=== PATIENT | male | born 1950 | race Caucasian/White ===

== ENCOUNTER → 2016-03-01 | Outpatient (REF) | payer MEDICAID, OTHER, SELFPAY ==
[2016-03-01 11:12] LABS: MEAN CORPUSCULAR HEMOGLOBIN 32.5 pg (27.0-33.0); MEAN CORPUSCULAR HGB CONC 34.8 g/dl (32.0-36.5); MEAN CORPUSCULAR VOLUME 93.5 fl (80.0-96.0); RED CELL DISTRIBUTION WIDTH 13.1 % (11.5-14.5); WHITE BLOOD COUNT 7.3 K/mm3 (4.0-10.0)
[2016-03-01 11:15] LABS: ALBUMIN/GLOBULIN RATIO 1.43 (1.00-1.93); ALKALINE PHOSPHATASE 95 U/L (45-117); ALT/SGPT 23 U/L (12-78); ANION GAP 7 MEQ/L (8-16); AST/SGOT 18 U/L (15-37); BILIRUBIN,TOTAL 0.7 MG/DL (0.2-1.0); BLOOD UREA NITROGEN 13 MG/DL (7-18); CALCIUM LEVEL 8.5 MG/DL (8.8-10.2); CARBON DIOXIDE LEVEL 28 MEQ/L (21-32); CHLORIDE LEVEL 108 MEQ/L (98-107); CREATININE FOR GFR 1.03 MG/DL (0.70-1.30); GLOMERULAR FILTRATION RATE > 60.0 (>49); GLUCOSE, FASTING 76 MG/DL (80-110); POTASSIUM SERUM 4.2 MEQ/L (3.5-5.1); SODIUM LEVEL 143 MEQ/L (136-145); TOTAL PROTEIN 6.8 GM/DL (6.4-8.2)
== END ==
LOC: M SFHCLERA 08:40
PROVIDERS: ATTEND Family Medicine
DX: K92.1 Melena (principal)

== ENCOUNTER → 2016-03-03 | Outpatient (REF) | payer BC, MEDICAID, OTHER, SELFPAY | LOC: M SFHCLERA 13:32 | PROVIDERS: ATTEND Family Medicine | DX: K92.1 Melena (principal) ==

== ENCOUNTER → 2016-04-24 | Outpatient (CLI) | payer BC, MEDICAID ==
--- NOTE | 2016-04-24 14:39 | REP ---
Chest two views HISTORY: Shortness of breath Comparison: 05/24/2009 The lungs are clear. The heart is normal in size. The pulmonary vasculature is normal in appearance. The bony structure is intact. A pectus deformity is present. IMPRESSION: No acute disease. Signed by Jacobo Merida MD 04/24/2016 02:30 P
== END ==
LOC: M LRY 13:35
PROVIDERS: ATTEND Family Medicine
DX: R06.02 Shortness of breath (principal)

== ENCOUNTER → 2016-05-22 | Outpatient (CLI) | payer BC, MEDICAID, OTHER ==
--- NOTE | 2016-05-22 16:36 | REP ---
Clinical: Pain. Technique: Internal rotation, external rotation and Y view. Findings: Cortical irregularity and spurring at the acromioclavicular joint suggests moderate AC joint degenerative change. The glenohumeral joint appears intact and normal. No periarticular calcifications. No acute fracture or dislocation. 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 Signed by Jay Claros MD 05/22/2016 04:27 P
== END ==
LOC: M LRY 15:29
PROVIDERS: ATTEND Family Medicine
DX: M25.512 Pain in left shoulder (principal); G89.29 Other chronic pain; R20.2 Paresthesia of skin

== ENCOUNTER → 2016-09-26 | Outpatient (REF) | payer OTHER, MEDICAID | LOC: M SFHCLERA 07:35 | PROVIDERS: ATTEND Family Medicine | DX: R36.1 Hematospermia (principal) ==

== ENCOUNTER → 2016-10-09 | Outpatient (CLI) | payer MEDICAID, MEDICARE, OTHER ==
[2016-10-09 20:38] LABS: ANION GAP 7 MEQ/L (8-16); BLOOD UREA NITROGEN 16 MG/DL (7-18); CALCIUM LEVEL 9.1 MG/DL (8.8-10.2); CARBON DIOXIDE LEVEL 31 MEQ/L (21-32); CHLORIDE LEVEL 106 MEQ/L (98-107); CREATININE FOR GFR 1.21 MG/DL (0.70-1.30); GLOMERULAR FILTRATION RATE > 60.0 (>49); GLUCOSE, FASTING 79 MG/DL (80-110); POTASSIUM SERUM 4.7 MEQ/L (3.5-5.1); SODIUM LEVEL 144 MEQ/L (136-145)
== END ==
LOC: M SMT 15:07
PROVIDERS: ATTEND Nurse Practitioner Women's Health
DX: Z12.5 Encounter for screening for malignant neoplasm of prostate (principal)
CPT/HCPCS: 36415; 80048; G0103

== ENCOUNTER → 2016-10-09 | Outpatient (REF) | payer MEDICARE, OTHER ==
[2016-10-09 19:15] LABS: MICROSCOPIC INDICATED? MAN YES (NO)
[2016-10-09 20:54] LABS: BACTERIA, URINE NONE SEEN; HYALINE CAST, URINE NONE SEEN /lpf (0-1); MICROSCOPIC EXAM PERFORMED; SQUAMOUS EPITHELIAL CELL URINE NONE SEEN /hpf (SMALL AMT); WBC, URINE NONE SEEN /hpf (0-3)
== END ==
LOC: M SMT 17:21
PROVIDERS: ATTEND Nurse Practitioner Women's Health
DX: R31.29 Other microscopic hematuria (principal); R36.1 Hematospermia; Z12.5 Encounter for screening for malignant neoplasm of prostate
CPT/HCPCS: 36415; 80048; 81000; 87086; 88108; G0103; G0463

== ENCOUNTER → 2016-10-20 | Outpatient (CLI) | payer MEDICARE, OTHER ==
[~2016-10-20] MED LIST: ISOVUE-370 76% 100ML VIAL (Q9967) As Ordered ONE
--- NOTE | 2016-10-20 10:54 | REP ---
CT urogram without and with IV contrast: Without oral contrast. History: Hematospermia. Comparison KUB February 22, 2015. CT contrast dose: 100 mL of intravenous Isovue 370. CT findings: Preliminary digital elder counselor views show an unremarkable bowel gas pattern. The lung bases show mild linear fibrosis in the left lower lobe. There is a fibronodular density in the right middle lobe at the right base. The nodular component is noncalcified and measures 6.5 mm in greatest diameter. This is indeterminate. No pleural or pericardial effusion is seen. No upper abdominal ascites is seen. There is a hepatic hemangioma at the dome of the right lobe of the liver measuring 1.8 cm in greatest diameter. No other focal liver lesion is seen. The spleen is normal in size and homogeneous in texture on pre and postcontrast images. No adrenal lesion is seen on either side. The pancreas is unremarkable. No abnormality is seen in the gallbladder. A normal caliber aorta is seen with mild vascular calcification. The kidneys enhance symmetrically. No intrarenal calculus is seen. There are bilateral renal cortical cysts. The largest is in the lower pole of the left kidney measuring 2.9 cm. No filling defect is seen in the collecting system on either side on delayed images. The prostate is mildly enlarged and contains one or two dystrophic calcifications. Seminal vesicles are unremarkable. The urinary bladder shows slight trabeculation posteriorly. There is left colonic diverticulosis. No abdominal wall defect is seen. There are osteoarthritic changes and subcortical cysts in the hips bilaterally. Degenerative spondylosis changes are noted in the lumbar spine. Discogenic sclerosis is seen fairly advanced at T12-L1. Impression: 1. Mild enlargement of prostate. 2. Cortical cysts in the kidneys bilaterally. Mild trabeculation of the bladder wall . No other urinary tract abnormality. 3. Small hemangioma in the right lobe of the liver. 4. 6.5 mm noncalcified nodule in the right middle lobe of the lung. Recommend chest CT for further evaluation. Followup chest CT study may be warranted in 6 months. Signed by Yassine Boone MD 10/20/2016 09:23 A
== END ==
LOC: M RAD 07:37
PROVIDERS: ATTEND Nurse Practitioner Women's Health
DX: R36.1 Hematospermia (principal)
CPT/HCPCS: 74178; Q9967

== ENCOUNTER → 2016-11-30 | Outpatient (CLI) | payer MEDICAID, MEDICARE ==
--- NOTE | 2016-11-30 11:39 | REP ---
CT of the chest without IV contrast: Comparison is the CT of the abdomen pelvis dated 07/15/2016. There is a 8 mm nodule in the medial segment of the right middle lobe inferiorly, similar to the nodule on the comparison CT of the abdomen and pelvis. Artery measuring this nodule on the comparison study utilizing the a similar axis and is on the current measurement. The nodule is unchanged in size. Additionally the following lung nodules are identified today. Image 20, left upper lobe, 3 mm, calcified granuloma. Image 54, right upper lobe anteriorly , 4 mm. Image 56, right lower lobe, 5 mm. Image 62, right middle lobe, 6 mm. Image 73, left lower lobe, 5 mm. No other nodules are identified. There are no acute infiltrates. There are curvilinear densities medially in the lower lobes bilaterally and inferiorly in the right middle lobe medially compatible with parenchymal scarring versus discoid atelectasis. There is no mediastinal adenopathy. The azygos node measures 9 mm which is normal size for this node. The unenhanced thoracic aorta is unremarkable. There is occasional calcified atheroma in the coronary arteries. No pericardial effusion. There is pectus extra bottom. The visualized upper abdominal contents are unremarkable. Impression: There are multiple lung nodules as described. There is no adenopathy. No acute infiltrate or effusion. Impression: Using the largest nodule, this is a category 4A chest CT. Probability of malignancy of the largest nodule is 5 - 15%. 3-month follow-up chest CT is recommended. PET CT scan might also be considered. Signed by Gabriele Sylvester MD 11/30/2016 11:30 A
== END ==
LOC: M RAD 10:51
PROVIDERS: ATTEND Family Medicine
DX: R91.1 Solitary pulmonary nodule (principal)

== ENCOUNTER → 2017-02-15 | Outpatient (REF) | payer MEDICARE, MEDICAID | LOC: M SFHCLERA 07:53 | PROVIDERS: ATTEND Family Medicine | DX: I10 Essential (primary) hypertension (principal) ==

== ENCOUNTER → 2017-03-05 | Outpatient (CLI) | payer MEDICARE, MEDICAID | LOC: M RAD 08:47 | DX: R91.8 Other nonspecific abnormal finding of lung field (principal) | CPT/HCPCS: 71250 ==

== ENCOUNTER → 2017-05-09 | Outpatient (CLI) | payer MEDICARE, MEDICAID | LOC: M LRY 15:54 | DX: S90.32XA Contusion of left foot, initial encounter (principal); X58.XXXA Exposure to other specified factors, initial encounter; Y92.89 Other specified places as the place of occurrence of the external cause | CPT/HCPCS: 73610 ==

== ENCOUNTER → 2017-06-25 | Outpatient (REF) | payer MEDICARE, MEDICAID ==
[2017-06-25 11:39] LABS: HEMATOCRIT 44.4 % (42.0-52.0); HEMOGLOBIN 15.6 g/dl (13.5-17.5); MEAN CORPUSCULAR HGB CONC 35.1 g/dl (32.0-36.5); MEAN CORPUSCULAR VOLUME 93.9 fl (80.0-96.0); PLATELET COUNT, AUTOMATED 195 10^3/uL (150-450); RED BLOOD COUNT 4.73 10^6/uL (4.30-6.10); RED CELL DISTRIBUTION WIDTH 12.4 % (11.5-14.5); WHITE BLOOD COUNT 6.1 10^3/uL (4.0-10.0)
[2017-06-25 11:45] LABS: ESTIMATED AVERAGE GLUCOSE 105 MG/DL (60-110); HEMOGLOBIN A1c 5.3 %
[2017-06-25 11:47] LABS: ALBUMIN 4.1 GM/DL (3.2-5.2); ALBUMIN/GLOBULIN RATIO 1.41 (1.00-1.93); ALKALINE PHOSPHATASE 71 U/L (45-117); ALT/SGPT 19 U/L (12-78); ANION GAP 3 MEQ/L (8-16); AST/SGOT 19 U/L (7-37); BILIRUBIN,TOTAL 1.2 MG/DL (0.2-1.0); BLOOD UREA NITROGEN 16 MG/DL (7-18); CALCIUM LEVEL 8.6 MG/DL (8.8-10.2); CARBON DIOXIDE LEVEL 32 MEQ/L (21-32); CHLORIDE LEVEL 106 MEQ/L (98-107); CHOLESTEROL LEVEL 191 MG/DL (<200); CHOLESTEROL RISK RATIO 3.237 (<5); CREATININE FOR GFR 1.33 MG/DL (0.70-1.30); GLOMERULAR FILTRATION RATE 57.4 (>49); GLUCOSE, FASTING 89 MG/DL (70-100); HDL CHOLESTEROL 59 MG/DL (>40); LDL CHOLESTEROL 120.2 MG/DL (<100); NON-HDL-C 132 MG/DL; SODIUM LEVEL 141 MEQ/L (136-145); TRIGLYCERIDES LEVEL 59 MG/DL (<150)
[2017-06-25 12:24] LABS: CREATININE, URINE 92.2 MG/DL; MALB URINE SIEMENS 6.8 MG/L; MAU/CREAT RATIO 7.3 MCG/MG (0.0-30.0)
== END ==
LOC: M SFHCLERA 08:10
DX: I10 Essential (primary) hypertension (principal); R39.9 Unspecified symptoms and signs involving the genitourinary system; Z79.899 Other long term (current) drug therapy; H11.32 Conjunctival hemorrhage, left eye; Z12.2 Encounter for screening for malignant neoplasm of respiratory organs; N40.1 Benign prostatic hyperplasia with lower urinary tract symptoms
CPT/HCPCS: 84443

== ENCOUNTER → 2017-12-27 | Outpatient (REF) | payer OTHER ==
[2017-12-27 13:56] LABS: CHLAMYDIA DNA AMPLIFICATION NEGATIVE (NEGATIVE); GC DNA AMPLIFICATION NEGATIVE (NEGATIVE)
[2017-12-27 15:46] LABS: APPEARANCE, URINE CLEAR (CLEAR); BACTERIA, URINE AUTO NEGATIVE (NEGATIVE); BILIRUBIN, URINE AUTO NEGATIVE (NEGATIVE); BLOOD, URINE BLOOD 1+ (NEGATIVE); COLOR, URINE YELLOW (YELLOW); GLUCOSE, URINE (UA) AUTO NEGATIVE (NEGATIVE); KETONE, URINE AUTO NEGATIVE (NEGATIVE); LEUKOCYTE ESTERASE, URINE AUTO NEGATIVE (NEGATIVE); MUCUS, URINE SMALL (NEGATIVE); NITRITE, URINE AUTO NEGATIVE (NEGATIVE); PROTEIN, URINE AUTO NEGATIVE (NEGATIVE); RBC, URINE AUTO 1 /HPF (0-3); SPECIFIC GRAVITY URINE AUTO 1.014 (1.002-1.035); SQUAMOUS EPITHELIAL CELL UR AU 0 /HPF (0-6); UROBILINOGEN, URINE AUTO 0.2 mg/dL (0.0-2.0); WBC, URINE AUTO 0 /HPF (0-3)
== END ==
LOC: M SFHCLERA 09:40
DX: R36.1 Hematospermia (principal); Z23 Encounter for immunization
CPT/HCPCS: 81001

== ENCOUNTER → 2018-01-09 | Outpatient (REF) | payer OTHER ==
[2018-01-09 11:42] LABS: APPEARANCE, URINE CLEAR (CLEAR); BACTERIA, URINE AUTO NEGATIVE (NEGATIVE); BILIRUBIN, URINE AUTO NEGATIVE (NEGATIVE); BLOOD, URINE BLOOD 1+ (NEGATIVE); COLOR, URINE YELLOW (YELLOW); GLUCOSE, URINE (UA) AUTO NEGATIVE (NEGATIVE); KETONE, URINE AUTO NEGATIVE (NEGATIVE); LEUKOCYTE ESTERASE, URINE AUTO NEGATIVE (NEGATIVE); MUCUS, URINE SMALL (NEGATIVE); NITRITE, URINE AUTO NEGATIVE (NEGATIVE); PROTEIN, URINE AUTO NEGATIVE (NEGATIVE); RBC, URINE AUTO 9 /HPF (0-3); SPECIFIC GRAVITY URINE AUTO 1.019 (1.002-1.035); SQUAMOUS EPITHELIAL CELL UR AU 0 /HPF (0-6); WBC, URINE AUTO 0 /HPF (0-3)
[2018-01-09 11:55] LABS: ANION GAP 6 MEQ/L (8-16); BLOOD UREA NITROGEN 19 MG/DL (7-18); CALCIUM LEVEL 8.9 MG/DL (8.8-10.2); CARBON DIOXIDE LEVEL 30 MEQ/L (21-32); CHLORIDE LEVEL 105 MEQ/L (98-107); CREATININE FOR GFR 1.23 MG/DL (0.70-1.30); GLOMERULAR FILTRATION RATE > 60.0 (>49); GLUCOSE, FASTING 88 MG/DL (70-100); POTASSIUM SERUM 4.4 MEQ/L (3.5-5.1); SODIUM LEVEL 141 MEQ/L (136-145)
== END ==
LOC: M SFHCLERA 08:14
DX: R36.1 Hematospermia (principal); I10 Essential (primary) hypertension
CPT/HCPCS: 80048

== ENCOUNTER → 2018-09-16 | Outpatient (REF) | payer MEDICARE ==
[~2018-09-16] MED LIST changes: +ASPI81TA85 PO; +FLOM0.4C39 PO; +HYDR25TAB PO; -ISOVUE-370 76% 100ML VIAL (Q9967) As Ordered ONE
[2018-09-16 11:39] LABS: CHOLESTEROL RISK RATIO 2.229 (<5)
== END ==
LOC: M SFHCLERA 07:42
PROVIDERS: ATTEND Family Medicine
DX: E78.5 Hyperlipidemia, unspecified (principal)
CPT/HCPCS: 80061; G0463

== ENCOUNTER → 2019-01-03 | Outpatient (REF) | payer MEDICARE ==
[2019-01-03 12:29] LABS: ALBUMIN 3.8 GM/DL (3.2-5.2); ALT/SGPT 18 U/L (12-78); BILIRUBIN,TOTAL 0.9 MG/DL (0.2-1.0); BLOOD UREA NITROGEN 16 MG/DL (7-18); CALCIUM LEVEL 8.9 MG/DL (8.8-10.2); CARBON DIOXIDE LEVEL 32 MEQ/L (21-32); CHLORIDE LEVEL 106 MEQ/L (98-107); CREATININE FOR GFR 1.26 MG/DL (0.70-1.30); GLOMERULAR FILTRATION RATE > 60.0 (>49); GLUCOSE, FASTING 80 MG/DL (70-100); POTASSIUM SERUM 4.1 MEQ/L (3.5-5.1); SODIUM LEVEL 140 MEQ/L (136-145); TOTAL PROTEIN 6.6 GM/DL (6.4-8.2)
[2019-01-03 12:44] LABS: APPEARANCE, URINE CLEAR (CLEAR); BACTERIA, URINE AUTO NEGATIVE (NEGATIVE); BILIRUBIN, URINE AUTO NEGATIVE (NEGATIVE); BLOOD, URINE BLOOD 1+ (NEGATIVE); COLOR, URINE YELLOW (YELLOW); GLUCOSE, URINE (UA) AUTO NEGATIVE (NEGATIVE); KETONE, URINE AUTO NEGATIVE (NEGATIVE); LEUKOCYTE ESTERASE, URINE AUTO NEGATIVE (NEGATIVE); NITRITE, URINE AUTO NEGATIVE (NEGATIVE); PROTEIN, URINE AUTO NEGATIVE (NEGATIVE); RBC, URINE AUTO 7 /HPF (0-3); SPECIFIC GRAVITY URINE AUTO 1.016 (1.002-1.035); SQUAMOUS EPITHELIAL CELL UR AU 0 /HPF (0-6); UROBILINOGEN, URINE AUTO 0.2 mg/dL (0.0-2.0); WBC, URINE AUTO 0 /HPF (0-3)
== END ==
LOC: M SFHCLERA 09:02
PROVIDERS: ATTEND Family Medicine
DX: R31.29 Other microscopic hematuria (principal); I10 Essential (primary) hypertension; Z23 Encounter for immunization
CPT/HCPCS: 80053; 81001; 87086; 90472; 90682; 90715; G0008; G0463

== ENCOUNTER → 2019-09-10 | Outpatient (CLI) | payer MEDICARE ==
[~2019-09-10] MED LIST changes: -ASPI81TA85 PO; +ASPI81TA86 PO
--- NOTE | 2019-09-10 10:52 | REP ---
REASON: Screening exam. Multiple ultrasonographic images of the abdominal aorta were obtained from the level of the celiac access to the aortoiliac bifurcation and the longitudinal and transverse scan planes along with color Doppler imaging. The maximal AP dimension of the abdominal aorta as measured in the longitudinal scan plane is 2.4. There is no evidence of common iliac arterial ectasia. IMPRESSION: No evidence of abdominal aortic aneurysm. Electronically Signed by Gerald Velez DO 09/10/2019 12:55 P
== END ==
LOC: M RAD 07:04
PROVIDERS: ATTEND Family Medicine
DX: Z13.6 Encounter for screening for cardiovascular disorders (principal)

== ENCOUNTER → 2020-03-15 | Outpatient (CLI) | payer MEDICARE ==
[~2020-03-15] MED LIST changes: +HYDR-3490 PO; -HYDR25TAB PO
[2020-03-15 16:58] LABS: BASO % 0.6 % (0.0-1.0); EOS % 0.6 % (0.0-3.0); HEMATOCRIT 44.2 % (42.0-52.0); HEMOGLOBIN 15.1 g/dl (13.5-17.5); LYMPH % 30.5 % (24.0-44.0); MEAN CORPUSCULAR HEMOGLOBIN 32.3 pg (27.0-33.0); MEAN CORPUSCULAR HGB CONC 34.2 g/dl (32.0-36.5); MEAN CORPUSCULAR VOLUME 94.4 fl (80.0-96.0); MONO # 0.7 10^3/uL (0.0-0.8); MONO % 10.3 % (0.0-5.0); NEUTROPHILS # 3.8 10^3/uL (1.5-8.5); NEUTROPHILS % 57.8 % (36.0-66.0); PLATELET COUNT, AUTOMATED 184 10^3/uL (150-450); RED BLOOD COUNT 4.68 10^6/uL (4.30-6.10); WHITE BLOOD COUNT 6.6 10^3/uL (4.0-10.0)
[2020-03-15 17:15] LABS: C REACTIVE PROTEIN QUANTITATIV 0.47 MG/DL (0.00-0.30); URIC ACID 5.8 MG/DL (3.5-7.2)
[2020-03-15 17:35] LABS: ERYTHROCYTE SEDIMENTATION RATE 5 mm/hr (0-20)
== END ==
LOC: M LAB 16:22
PROVIDERS: ATTEND Physician Assistant Surgical
DX: M79.675 Pain in left toe(s) (principal)
CPT/HCPCS: 36415; 84550; 85025; 85652; 86140; G0463

== ENCOUNTER → 2020-06-17 | Outpatient (CLI) | payer MEDICARE ==
--- NOTE | 2020-06-17 08:41 | REP ---
INDICATION: ABNORMAL FINDING OF LUNG FIELD. COMPARISON: 03/05/2017 and 11/30/2016 TECHNIQUE: Standard helical technique without the administration of intravenous contrast FINDINGS: The mediastinum and pulmonary obi are within normal limits. There is no evidence of a mass or adenopathy. There is tortuosity of the thoracic aorta status quo. There are no pleural or pericardial effusions. The imaged osseous structures and the imaged upper abdomen are unchanged. There are bilateral renal cysts which appear stable from the CT examination of the abdomen and pelvis of 10/20/2016. Evaluation of the lung [place] show no new abnormal nodules, masses, or opacities. Stable scattered fibrotic changes are again noted particularly in the lung bases. There is stable biapical pleuroparenchymal scarring and emphysematous change with tiny bulla and pleural blebs. There is a small amount of soft tissue density in the trachea likely secondary to mucoid debris. IMPRESSION: 1. Stable appearing chronic changes. There are multiple stable pulmonary nodules. Yearly CT screening is recommended according to the revised Fleischner society criteria. <Electronically signed by Gerald Velez > 06/17/20 0821
== END ==
LOC: M RAD 07:06
PROVIDERS: ATTEND Internal Medicine Pulmonary Disease
DX: R91.8 Other nonspecific abnormal finding of lung field (principal)

== ENCOUNTER → 2021-03-09 | Outpatient (REF) | payer MEDICARE | LOC: M SFHCLERA 11:35 | PROVIDERS: ATTEND Family Medicine | DX: J02.9 Acute pharyngitis, unspecified (principal); Z20.822 Contact with and (suspected) exposure to COVID-19 | CPT/HCPCS: 87426; G0463; U0003 ==

== ENCOUNTER 2023-03-28 10:18 | Day surgery (SDC) | payer OTHER ==
[~2023-03-28] VITALS: Ht 175.3 cm; Wt 68.4 kg
[~2023-03-28 10:18] MED LIST changes: +FINA5TAB2 PO; +LIDOCAINE 2% 100MG/5ML SDV (FOR ANES.) As Ordered ONE; +MIDAZOLAM INJ 2MG/2ML VIAL As Ordered ONE; +ONDANSETRON 4MG 2ML VIAL As Ordered ONE; +ROSU5TAB5 PO; +fentaNYL 100 MCG/2 ML INJECTION As Ordered ONE; +propofoL 200 MG/20 ML VIAL As Ordered ONE
[2023-03-28] MEDS ORDERED: LR 1,000 ML IV SCH ×2 (10:35→14:25)
[2023-03-28] MEDS ORDERED: ECOT81TA5 PO (11:08)
[2023-03-28] MEDS ORDERED: ACETAMINOPHEN 1000MG 100ML IV BAG As Ordered ONE (12:32)
[2023-03-28] MEDS: ceFAZolin 2 GM/D5W 50 ML IV BAG As Ordered ONE (12:35)
[2023-03-28] MEDS ORDERED: GLYCOPYRROLATE INJ 0.2 MG/ML 2 ML VIAL As Ordered ONE (12:49)
[2023-03-28] MEDS ORDERED: KETOROLAC 60MG 2ML VIAL As Ordered ONE (13:45)
[2023-03-28] MEDS: BACITRACIN OINTMENT 30GM TUBE As Ordered ONE (14:04)
[2023-03-28] MEDS ORDERED: PERCOCET PO (14:22)
[2023-03-28] MEDS ORDERED: fentaNYL 100 MCG/2 ML INJECTION IV PRN (14:25)
[2023-03-28] MEDS ORDERED: ONDANSETRON 4MG 2ML VIAL IV PRN (14:25)
[2023-03-28] MEDS: HYDROMORPHONE HCL 0.5 MG/ 0.5 ML SYRINGE IV PRN (14:30)
[2023-03-28] MEDS: oxyCODONE 5MG TAB PO PRN (15:14)
[2023-03-28 16:30] VITALS: BP 136/81; TEMP 98.5; O2SAT 95
== END 2023-03-28 17:01 | disposition home or self-care (01) ==
LOC: M SDC 10:18
PROVIDERS: ATTEND Orthopaedic Surgery Hand Surgery
DX: S62.306A Unspecified fracture of fifth metacarpal bone, right hand, initial encounter for closed fracture (principal); X58.XXXA Exposure to other specified factors, initial encounter; Y92.89 Other specified places as the place of occurrence of the external cause; Y93.89 Activity, other specified; Y99.9 Unspecified external cause status; I10 Essential (primary) hypertension; N40.0 Benign prostatic hyperplasia without lower urinary tract symptoms; Z87.891 Personal history of nicotine dependence; Z79.899 Other long term (current) drug therapy; Z79.82 Long term (current) use of aspirin
CPT/HCPCS: 26615; 76000; J0131; J0665; J0690; J1100; J1170; J1885; J2250; J2405; J3010

== ENCOUNTER → 2023-04-06 | Outpatient (CLI) | payer OTHER ==
[~2023-04-06] MED LIST changes: +ECOT81TA5 PO; -LIDOCAINE 2% 100MG/5ML SDV (FOR ANES.) As Ordered ONE; -MIDAZOLAM INJ 2MG/2ML VIAL As Ordered ONE; -ONDANSETRON 4MG 2ML VIAL As Ordered ONE; +PERCOCET PO; -fentaNYL 100 MCG/2 ML INJECTION As Ordered ONE; -propofoL 200 MG/20 ML VIAL As Ordered ONE
== END ==
LOC: M SOG 08:00
PROVIDERS: ATTEND Physician Assistant
DX: S62.326A Displaced fracture of shaft of fifth metacarpal bone, right hand, initial encounter for closed fracture (principal); Y92.9 Unspecified place or not applicable; Y93.9 Activity, unspecified; X58.XXXA Exposure to other specified factors, initial encounter; Y99.8 Other external cause status

== ENCOUNTER → 2023-05-07 | Outpatient (CLI) | payer OTHER | LOC: M SOG 09:19 | PROVIDERS: ATTEND Physician Assistant | DX: S62.326A Displaced fracture of shaft of fifth metacarpal bone, right hand, initial encounter for closed fracture (principal); M19.041 Primary osteoarthritis, right hand ==

== ENCOUNTER → 2023-06-13 | Outpatient (CLI) | payer OTHER | LOC: M SOG 09:07 | PROVIDERS: ATTEND Physician Assistant | DX: S62.326A Displaced fracture of shaft of fifth metacarpal bone, right hand, initial encounter for closed fracture (principal) ==

== ENCOUNTER → 2025-01-12 | Outpatient (REF) | payer MEDICARE, OTHER ==
[~2025-01-12] MED LIST changes: -FLOM0.4C39 PO; +ROSU5TAB49 PO; -ROSU5TAB5 PO; +TAMS-18 PO
== END ==
LOC: M SFHCDERM 17:40
PROVIDERS: ATTEND Nurse Practitioner Family
DX: D48.19 Other specified neoplasm of uncertain behavior of connective and other soft tissue (principal)

== ENCOUNTER → 2025-01-16 | Outpatient (CLI) | payer MEDICARE | LOC: M SOG 07:44 | PROVIDERS: ATTEND Physician Assistant | DX: M25.521 Pain in right elbow (principal) ==

== ENCOUNTER → 2025-02-10 | Outpatient (CLI) | payer MEDICARE | LOC: M PLARAD 07:32 | PROVIDERS: ATTEND Dermatology | DX: C80.1 Malignant (primary) neoplasm, unspecified (principal); D81 Combined immunodeficiencies; D48.19 Other specified neoplasm of uncertain behavior of connective and other soft tissue | CPT/HCPCS: 78816; A9552 ==